=== PATIENT | female | born 1965 | race Caucasian/White ===

== ENCOUNTER 2016-08-24 10:30 | Inpatient (IN) | payer SELFPAY ==
[~2016-08-24] VITALS: Ht 172.7 cm; Wt 92.1 kg
[2016-08-24 18:11] VITALS: BP 153/94; PULSE 104; RESP 18; TEMP 99; O2SAT 96
[2016-08-24] MEDS ORDERED: AMLO10 PO (18:22)
[2016-08-24] MEDS ORDERED: PRED10 PO (18:27)
[2016-08-24] MEDS ORDERED: FLOR250C PO (18:29)
[2016-08-24] MEDS ORDERED: FAMO1TAB37 PO (18:29)
[2016-08-24] MEDS ORDERED: BACT800T5 PO (18:30)
[2016-08-24] MEDS ORDERED: IPRASOL INH (18:32)
[2016-08-24] MEDS ORDERED: MAGNESIUM HYDROXIDE SUSP 30 ML CUP PO PRN (18:45)
[2016-08-24] MEDS ORDERED: ALUMINUM/MAGNESIUM/SIMETH 30 ML CUP PO PRN (18:45)
[2016-08-24] MEDS ORDERED: diphenhydrAMINE HCL 50 MG/ML VIAL IM PRN (18:45)
[2016-08-24] MEDS ORDERED: diphenhydrAMINE HCL 50 MG CAP PO PRN (18:45)
[2016-08-24] MEDS ORDERED: ACETAMINOPHEN 325 MG TAB PO PRN (18:45)
[2016-08-24] MEDS: clonazePAM 1 MG TAB PO SCH (20:36)
[2016-08-25 05:13] VITALS: BP 153/86; PULSE 104; RESP 17; TEMP 100.2; O2SAT 95
[2016-08-25] MEDS: NICOTINE 21 MG/24 HR PATCH T-DERMAL SCH (09:00)
[2016-08-25] MEDS: clonazePAM 1 MG TAB PO SCH ×2 (09:02→20:52)
[2016-08-25] MEDS ORDERED: hydrOXYzine HCL 50 MG TAB PO PRN (10:00)
[2016-08-25] MEDS ORDERED: ACETAMINOPHEN 325 MG TAB PO PRN (10:00)
[2016-08-25] MEDS ORDERED: RESP: ALBUTEROL 2.5 MG/IPRATROPIUM 0.5 MG NEB (PRN) INH (10:00)
[2016-08-25] MEDS ORDERED: MAGNESIUM HYDROXIDE SUSP 30 ML CUP PO PRN (10:00)
[2016-08-25] MEDS ORDERED: ALUMINUM/MAGNESIUM/SIMETH 30 ML CUP PO PRN (10:00)
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
[2016-08-25] MEDS ORDERED: LORazepam 1 MG TAB PO PRN (12:45)
[2016-08-25] MEDS ORDERED: LORazepam 2 MG/ML VIAL IV PUSH PRN ×4 (12:45)
[2016-08-25] MEDS ORDERED: FLUMAZENIL 0.5 MG/5 ML VIAL IV PUSH PRN (12:45)
[2016-08-25] MEDS ORDERED: LORazepam 2 MG TAB PO PRN (12:45)
--- NOTE | 2016-08-25 12:54 | PD.CONS ---
HPI Service [facility] Hospitalists Consult Requested By Psychiatry service Reason for Consult Medical management Primary Care Physician Unknown Diagnoses: History of Present Illness This is a 51-year-old female who was initially admitted to [facility] in [facility] under Fung act due to a suicide attempt with an overdose of alcohol, Xanax and Wellbutrin. Patient was found to be obtunded and was intubated. At that time, toxicology was positive for benzodiazepines only. Patient was extubated on 08/19/16. Patient had a diagnosis of the acute respiratory failure aspiration pneumonia, UTI and seizure. Patient was then transferred to [place] under the Fung act. Hospitalist service was consulted for medical management. Patient seen and examined today. She denies any previous medical history and states that she only took the excess pills so she could try and get some sleep. She does acknowledge misuse of alcohol consuming a pint of Goldschlager, a couple of shots of vodka and a few beers 5 days out of the week. At present, patient complains of sore throat that she believes is related to her recent intubation. She also reports some cough with clear "sticky" sputum production. She denies any shortness of breath. She denies any fever, chills, palpitations, dizziness, abdominal pain, diarrhea or constipation. Review of Systems Except as stated in HPI: all other systems reviewed are Neg (10 point review of systems completed and all pertinents as stated in the history of present illness) Past Family Social History Allergies: Coded Allergies: No Known Allergies (Unverified , 08/24/16) Past Medical History Depression Patient denies any previous history of hypertension but does state they started on antihypertensive medication during her recent hospitalization Past Surgical History Patient denies any previous surgical history. Reported Medications Ipratropium-Albuterol Neb (Duoneb)0.5-2.5 Mg/3 Ml Neb1 Nebule INH Q6HR NEB PRN ( Breathing Treatment) #120 NEBULE Ref 0 08/24/16 Sulfamethoxazole-Trimethoprim (Bactrim DS)800-160 Mg Tab1 Tab PO BID Ref 0 08/24/16 Saccharomyces Boulardii (Florastor)250 Mg Xmd177 Mg PO BID Ref 0 08/24/16 Famotidine (Pepcid)20 Mg Tab20 Mg PO BID #60 TAB Ref 0 08/24/16 Prednisone 10 Mg Tab10 Mg PO DAILY Ref 0 08/24/16 Amlodipine (Norvasc)10 Mg Tab10 Mg PO DAILY #30 TAB Ref 0 08/24/16 Active Ordered Medications Current Medications Medications (Trade) Dose Ordered Sig/Najma Route Start Time Stop Time Status Last Admin (Benadryl) 50 mg Q6H PRN PO 08/24/16 18:45 (Benadryl Inj) 50 mg Q6H PRN IM 08/24/16 18:45 (Tylenol) 650 mg Q4H PRN PO 08/24/16 18:45 08/25/16 05:19 (Milk Of Magnesia Liq) 30 ml DAILY PRN PO 08/24/16 18:45 (Mag-Al Plus Susp Liq) 30 ml Q6H PRN PO 08/24/16 18:45 (Habitrol 21 Mg Patch.24 Hr) 1 patch DAILY T-DERMAL 08/25/16 09:00 Miscellaneous Information 1 HS T-DERMAL 08/25/16 21:00 (KlonoPIN) 1 mg BID PO 08/24/16 21:00 08/25/16 09:02 (Atarax) 50 mg Q6H PRN PO 08/25/16 10:00 (Norvasc) 10 mg DAILY PO 08/26/16 09:00 (Pepcid) 20 mg BID PO 08/25/16 21:00 (Deltasone) 10 mg DAILY PO 08/26/16 09:00 (Bactrim Ds 800-160 Mg) 1 tab BID PO 08/25/16 21:00 (Remeron) 15 mg HS PO 08/25/16 21:00 Family History Patient denies any past FMHX of HTN or DM. Social History Patient admits to tobacco use of one pack per day since the age of 22 ETOH use consists of 1 pint of Goldschlager, "a couple of shots of vodka" and beer 5x/week Patient denies any illicit drug use Physical Exam Vital Signs Vital Signs Date Time Temp Pulse Resp B/P Pulse Ox O2 Delivery O2 Flow Rate FiO2 08/25/16 05:13 100.2 104 17 153/86 95 08/24/16 18:11 99.0 104 18 153/94 96 Physical Exam GENERAL: This is a well-nourished, well-developed patient, in no apparent distress. SKIN: No rashes, ecchymoses or lesions. Cool and dry. HEAD: Atraumatic. Normocephalic. No temporal or scalp tenderness. EYES: Pupils equal round and reactive. Extraocular motions intact. No scleral icterus. No injection or drainage. ENT: Nose without bleeding, purulent drainage or septal hematoma. Throat with whitish exudate. Uvula midline. Airway patent. NECK: Trachea midline. No JVD or lymphadenopathy. Supple, nontender, no meningeal signs. CARDIOVASCULAR: Regular rate and rhythm without murmurs, gallops, or rubs. RESPIRATORY: Clear to auscultation. Breath sounds equal bilaterally. No wheezes , rales, or rhonchi. GASTROINTESTINAL: Abdomen soft, non-tender, nondistended. No hepato-splenomegaly , or palpable masses. No guarding. MUSCULOSKELETAL: Extremities without clubbing, cyanosis, or edema. No joint tenderness, effusion, or edema noted. No calf tenderness. Negative Homans sign bilaterally. NEUROLOGICAL: Awake and alert. Cranial nerves II through XII intact. Motor and sensory grossly within normal limits. Five out of 5 muscle strength in all muscle groups. Normal speech. Assessment and Plan Assessment and Plan 51-year-old female who was initially admitted to [facility] in [facility] under Fung act due to a suicide attempt with an overdose of alcohol , Xanax and Wellbutrin. Patient was found to be obtunded and was intubated. At that time, toxicology was positive for benzodiazepines only. Patient was extubated on 08/19/16. Patient had a diagnosis of the acute respiratory failure aspiration pneumonia, UTI and seizure. Patient was then transferred to [place] under the Fung act. Hospitalist service was consulted for medical management. Depression/possible suicide attempt - Management per psychiatric team Hypertension - Recently diagnosed during hospitalization - Continue amlodipine - BP currently 153/86 - clonidine prn with parameters - Monitor BP and adjust treatment as indicated Thrush - Magic mouthwash Recent UTI - dx'd and treatment initiated at [facility] - Continue by mouth Bactrim Fever and cough in patient with h/o recent intubation and aspiration pneumonia - CXR ordered - labs pending - will continue to monitor closely History of alcohol abuse - [facility] protocol - Thiamine and folate daily Tobacco use - Cessation counseling - Nicotine patch offered but declined DVT prophylaxis - frequent ambulation Written by Tomasa Jean Baptiste PA-C acting as scribe for Dr. Sebastian on 08/25/16 at 10:47. All or portions of this note were transcribed by scribe Tomasa GALVAN. I , Dr. Kajal Sebastian personally performed the history, physical exam, and medical decision making; and confirmed the accuracy of the information in the transcribed note. Authenticated by Dr. Kajal Sebastian on 08/25/16 at 10:47. Discussed Condition With Patient Nursing Staff Tomasa Jean Baptiste Aug 25, 2016 12:54 Kajal Sebastian MD Aug 25, 2016 17:22
[2016-08-25] MEDS ORDERED: cloNIDine HCL 0.1 MG TAB PO PRN (13:00)
[2016-08-25] MEDS: THIAMINE HCL 100 MG TAB PO SCH (13:53)
[2016-08-25] MEDS: FOLIC ACID 1 MG TAB PO SCH (13:53)
[2016-08-25 14:57] LABS: AUTOMATED NEUTROPHIL # 7.4 TH/MM3 (1.8-7.7); BASOPHIL # 0.1 TH/MM3 (0-0.2); BASOPHIL % 0.6 % (0.0-2.0); EOSINOPHIL % 0.2 % (0.0-4.0); HEMATOCRIT 41.5 % (35.0-46.0); HEMO FLAGS DIFF FINAL; LYMPH % 17.9 % (9.0-44.0); LYMPHOCYTE # 1.8 TH/MM3 (1.0-4.8); MEAN CELL VOLUME 94.9 FL (80.0-100.0); MEAN CORPUSCULAR HEMOGLOBIN 31.9 PG (27.0-34.0); MEAN CORPUSCULAR HGB CONC 33.6 % (32.0-36.0); MONO % 7.7 % (0.0-8.0); NEUT % 73.6 % (16.0-70.0); PLATELET COUNT 298 TH/MM3 (150-450); RED BLOOD COUNT 4.37 MIL/MM3 (4.00-5.30); RED CELL DISTRIBUTION WIDTH 12.8 % (11.6-17.2)
[2016-08-25 15:18] LABS: ANION GAP 10 MEQ/L (5-15); BICARBONATE 20.7 MEQ/L (21.0-32.0); BLOOD UREA NITROGEN 18 MG/DL (7-18); CHLORIDE 106 MEQ/L (98-107); POTASSIUM 3.2 MEQ/L (3.5-5.1); SODIUM (NA) 137 MEQ/L (136-145)
[2016-08-25 15:27] LABS: ALKALINE PHOSPHATASE 100 U/L (45-117); ALT (GPT) 138 U/L (10-53); AST (GOT) 49 U/L (15-37); FREE T4 1.42 NG/DL (0.76-1.46); GLOMERULAR FILTRATION RATE 86 ML/MIN (>89); HDL CHOLESTEROL 39.5 MG/DL (40.0-60.0); LDL CHOLESTEROL 210 MG/DL (0-99); TOTAL BILIRUBIN ADULT 0.6 MG/DL (0.2-1.0)
[2016-08-25] MEDS: NYSTAT/DIPHENHY/LIDO MOUTHWASH (Adult) 120ML SWISH-SWAL SCH ×3 (15:58→20:53)
[2016-08-25 16:00] VITALS: BP 146/96; PULSE 86; RESP 18; TEMP 98.5; O2SAT 96
--- NOTE | 2016-08-25 16:15 | RADRPT ---
EXAM DATE/TIME: 08/25/2016 15:44 [place] COMPARISON: No previous studies available for comparison. INDICATIONS : Cough. MEDICAL HISTORY : Hx of pneumonia. SURGICAL HISTORY : None. ENCOUNTER: Initial ACUITY: 3 days PAIN SCORE: 0/10 LOCATION: chest FINDINGS: Mild hyperinflation. There are atelectatic changes noted at the bases. No consolidation or effusion. Osseous structures are intact. Borderline cardiomegaly. CONCLUSION: Basilar atelectasis. Junior Carrasquillo MD on August 25, 2016 at 16:13 Board Certified Radiologist. This report was verified electronically.
[2016-08-25] MEDS: SULFAMETHOXAZOLE-TRIMETHOPRIM DS 800-160 MG TAB PO SCH (20:52)
[2016-08-25] MEDS: FAMOTIDINE 20 MG TAB PO SCH (20:52)
[2016-08-25] MEDS ORDERED: REMOVE OLD NICOTINE PATCH T-DERMAL SCH (21:00)
[2016-08-25] MEDS ORDERED: MIRTAZAPINE 15 MG TAB PO SCH (21:00)
[2016-08-26 05:47] VITALS: BP 123/80; PULSE 79; RESP 16; TEMP 98; O2SAT 96
[2016-08-26] MEDS ORDERED: POTASSIUM CHLORIDE 10 MEQ CONTROLLED RELEASE TAB PO ONE (07:45)
[2016-08-26] MEDS: clonazePAM 1 MG TAB PO SCH (08:25)
[2016-08-26] MEDS: SULFAMETHOXAZOLE-TRIMETHOPRIM DS 800-160 MG TAB PO SCH (08:25)
[2016-08-26] MEDS: FAMOTIDINE 20 MG TAB PO SCH (08:26)
[2016-08-26] MEDS: THIAMINE HCL 100 MG TAB PO SCH (08:26)
[2016-08-26] MEDS: FOLIC ACID 1 MG TAB PO SCH (08:26)
[2016-08-26] MEDS: NYSTAT/DIPHENHY/LIDO MOUTHWASH (Adult) 120ML SWISH-SWAL SCH (08:26)
[2016-08-26] MEDS: NICOTINE 21 MG/24 HR PATCH T-DERMAL SCH (08:28)
[2016-08-26] MEDS ORDERED: predniSONE 10 MG TAB PO SCH (09:00)
[2016-08-26] MEDS ORDERED: MIRTA15 PO (09:47)
[2016-08-26] MEDS ORDERED: CLON1 PO (09:47)
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
[2016-08-26 10:27] LABS: ALKALINE PHOSPHATASE 105 U/L (45-117); ALT (GPT) 122 U/L (10-53); ANION GAP 11 MEQ/L (5-15); AST (GOT) 35 U/L (15-37); BLOOD UREA NITROGEN 18 MG/DL (7-18); CHLORIDE 105 MEQ/L (98-107); POTASSIUM 3.6 MEQ/L (3.5-5.1); SODIUM (NA) 136 MEQ/L (136-145); TOTAL BILIRUBIN ADULT 0.6 MG/DL (0.2-1.0)
[2016-08-26 10:58] LABS: GLOMERULAR FILTRATION RATE 67 ML/MIN (>89)
== END 2016-08-26 11:25 | disposition home or self-care (01) | DRG 885 ==
LOC: H260 10:30
PROVIDERS: ADMIT Psychiatry & Neurology Psychiatry; ATTEND Psychiatry & Neurology Psychiatry
DX: F32.2 Major depressive disorder, single episode, severe without psychotic features (principal); I10 Essential (primary) hypertension; N39.0 Urinary tract infection, site not specified; F17.210 Nicotine dependence, cigarettes, uncomplicated; B37.9 Candidiasis, unspecified; F10.10 Alcohol abuse, uncomplicated
CPT/HCPCS: 71020; 80053; 80061; 84439; 84443; 85025; J7512

== ENCOUNTER 2017-09-01 10:58 | Emergency (ER) | payer SELFPAY ==
[~2017-09-01] VITALS: Ht 172.7 cm; Wt 94.0 kg
[~2017-09-01 10:58] MED LIST: AMLO10 PO; BACT800T5 PO; CLON1 PO; FAMO1TAB37 PO; FLOR250C PO; IPRASOL INH; MIRTA15 PO; PRED10 PO
[2017-09-01 11:01] VITALS: BP 205/111; PULSE 83; RESP 16; TEMP 98; O2SAT 99
[2017-09-01 11:30] VITALS: BP 169/102; PULSE 77; RESP 18; O2SAT 99
--- NOTE | 2017-09-01 11:46 | PD ---
HPI Chief Complaint: General Weakness Time Seen by Provider: 11:34 Travel History International Travel<30 days: No Contact w/Intl Traveler<30days: No Traveled to known affect area: No History of Present Illness HPI This 52-year-old female is concerned that the left supraclavicular area appears somewhat swollen. She says that her friends have told her that it appears enlarged to them. She has been coughing a lot. She does smoke cigarettes. She is not short of breath. She is not having pain PFSH Past Medical History Asthma: No Autoimmune Disease: No Anxiety: Yes Depression: Yes Heart Rhythm Problems: No Cancer: No Cardiovascular Problems: No High Cholesterol: No Chemotherapy: No Chest Pain: No Congestive Heart Failure: No COPD: No Cerebrovascular Accident: No Diabetes: No Endocrine: No Genitourinary: No Headaches: No Immune Disorder: No Musculoskeletal: No Neurologic: No Psychiatric: No Reproductive: No Respiratory: No Migraines: No Radiation Therapy: No Seizures: No Sickle Cell Disease: No Sleep Apnea: No ?: Not Past Surgical History Abdominal Surgery: No AICD: No Arteriovenous Shunt: No Cardiac Surgery: No Ear Surgery: No Endocrine Surgery: No Eye Surgery: No Genitourinary Surgery: No Gynecologic Surgery: No Insulin Pump: No Joint Replacement: No Oral Surgery: No Pacemaker: No Thoracic Surgery: Yes Social History Tobacco Use: Yes Substance Use: No Allergies-Medications (Allergen,Severity, Reaction): Coded Allergies: No Known Allergies (Unverified Adverse Reaction, Unknown, 09/01/17) Reported Meds & Prescriptions Reported Meds & Active Scripts Active Review of Systems Except as stated in HPI: all other systems reviewed are Neg General / Constitutional: No: Fever, Chills Eyes: No: Diploplia, Blurred Vision HENT: No: Headaches Respiratory: Positive: Cough, No: Shortness of Breath Gastrointestinal: No: Vomiting Genitourinary: No: Urgency, Frequency Musculoskeletal: No: Myalgias Physical Exam Narrative GENERAL: Well-developed female SKIN: Focused skin assessment warm/dry. HEAD: Atraumatic. Normocephalic. EYES: Pupils equal and round. No scleral icterus. No injection or drainage. ENT: No nasal bleeding or discharge. Mucous membranes pink and moist. NECK: Trachea midline. No JVD. CARDIOVASCULAR: Regular rate and rhythm. No murmur appreciated. RESPIRATORY: No accessory muscle use. Clear to auscultation. Breath sounds equal bilaterally. Examining the supraclavicular area there appears to be some fullness on the left side however on palpation I do not feel any mass in the supraclavicular areas feels symmetric GASTROINTESTINAL: Abdomen soft, non-tender, nondistended. Hepatic and splenic margins not palpable. MUSCULOSKELETAL: No obvious deformities. No clubbing. No cyanosis. No edema. NEUROLOGICAL: Awake and alert. No obvious cranial nerve deficits. Motor grossly within normal limits. Normal speech. PSYCHIATRIC: Appropriate mood and affect; insight and judgment normal. Data Data Last Documented VS Vital Signs Date Time Temp Pulse Resp B/P (MAP) Pulse Ox O2 Delivery O2 Flow Rate FiO2 09/01/17 11:15 Room Air 09/01/17 11:01 98.0 83 16 205/111 (142) 99 Orders Orders Chest, Pa & Lat (09/01/17 11:44) [facility] Medical Decision Making Medical Screen Exam Complete: Yes Emergency Medical Condition: Yes Medical Record Reviewed: Yes Differential Diagnosis Differential includes space-occupying lesion, bronchitis Narrative Course X-ray does not show any evidence of mass. Pression is bronchitis. I do not he has bacterial infection but have encouraged her to stop smoking Diagnosis Primary Impression: Bronchitis Disposition: DISCHARGE HOME Condition: Stable Eliud Aguirre MD Sep 01, 2017 11:46
--- NOTE | 2017-09-01 12:02 | RADRPT ---
EXAM DATE/TIME: 09/01/2017 11:47 [facility] COMPARISON: CHEST PA & LAT, August 25, 2016, 15:44. INDICATIONS : Productive cough and swelling in neck region. MEDICAL HISTORY : None. SURGICAL HISTORY : None. ENCOUNTER: Initial ACUITY: 1 day PAIN SCORE: 0/10 LOCATION: Bilateral chest FINDINGS: PA and lateral views of the chest demonstrate the lungs to be symmetrically aerated without evidence of mass, infiltrate or effusion. The cardiomediastinal contours are unremarkable. Osseous structure s are intact. CONCLUSION: No acute disease. Teofilo Begum MD on September 01, 2017 at 11:59 Board Certified Radiologist. This report was verified electronically.
[2017-09-01 12:30] VITALS: BP 137/91; PULSE 76; RESP 19; O2SAT 98
[2017-09-01 13:10] VITALS: BP 138/90
== END 2017-09-01 13:10 | disposition home or self-care (01) ==
LOC: PHED 10:58
DX: J40 Bronchitis, not specified as acute or chronic (principal); F32.9 Major depressive disorder, single episode, unspecified; F41.9 Anxiety disorder, unspecified; F17.210 Nicotine dependence, cigarettes, uncomplicated
CPT/HCPCS: 71046; 99283